=== PATIENT | female | born 1950 | race Caucasian/White ===

== ENCOUNTER → 2023-08-07 | Outpatient (CLI) | payer MEDICARE, MEDICAID ==
[~2023-08-07] MED LIST: BARIUM SULFATE 176 GM SUSP.RECON ONE
== END | disposition home or self-care (01) ==
LOC: RAD 10:01
PROVIDERS: ATTEND Family Medicine
DX: R13.10 Dysphagia, unspecified (principal)
CPT/HCPCS: 74220